=== PATIENT | male | born 1965 | race Caucasian/White ===

== ENCOUNTER 2024-05-04 19:18 | Emergency (ER) | payer BC, SELFPAY ==
[2024-05-04 19:21] VITALS: BP 166/104
[2024-05-04 19:40] LABS: % Basophils 0.5 % (0-2); % Eosinophils 2.3 % (0-6); % Immature Granulocytes 0.4 % (0-0.5); % Lymphocytes 20.1 % (20.5-51.1); % Monocytes 7.1 % (1.7-9.3); % Neutrophils 69.6 % (42.2-75.2); Absolute Eosinophils 0.2 10^3/uL (0-0.7); Absolute Lymphocytes 1.5 10^3/uL (1.2-3.4); Absolute Monocytes 0.5 10^3/uL (0.1-0.6); Absolute Neutrophils 5.2 10^3/uL (1.4-6.5); Hematocrit 39.6 % (39.0-52.0); Hemoglobin 13.9 g/dL (13.0-18.0); Mean Corp Hgb Conc. 35.1 g/dL (33.0-37.0); Mean Corpuscular Hgb 29.3 pg (27.0-31.0); Mean Corpuscular Volume 83.5 fL (80.0-94.0); Mean Platelet Volume 9.8 fL (7.4-10.4); Nucleated Red Blood Cells % 0 % (-); Platelet Count 198 10^3/uL (130-400); Red Blood Cell Count 4.74 10^6/uL (4.70-6.10); Red Cell Dist. Width 12.6 % (11.5-14.5); White Blood Cell Count 7.5 10^3/uL (4.8-10.8)
[2024-05-04 19:47] LABS: Urine Albumin Trace (Neg - Trace); Urine Bilirubin Negative (Negative); Urine Character Clear (Clear); Urine Color Amber; Urine Glucose Negative (Negative); Urine Ketone Trace (Negative); Urine Leukocyte Trace (Negative); Urine Nitrite Negative (Negative); Urine Occult Blood 4+ (Negative); Urine Specific Gravity 1.025 (<1.030); Urine Urobilinogen 1+ (Neg - 1+)
[2024-05-04 20:00] LABS: ALT (SGPT) 34 U/L (0-50); AST (SGOT) 29 U/L (17-59); Albumin 4.7 g/dl (3.5-5.0); Alkaline Phosphatase 74 U/L (38-126); Blood Urea Nitrogen 20 mg/dl (9-20); Calcium 9.4 mg/dl (8.4-10.2); Carbon Dioxide 27 mmol/L (22-30); Chloride 103 mmol/L (98-107); Glucose 195 mg/dl (70-99); Potassium 4.6 mmol/L (3.5-5.1); Sodium 143 mmol/L (135-145); Total Bilirubin 0.7 mg/dl (0.2-1.3); Total Protein 7.1 g/dl (6.3-8.2); eGFR > 60.00
[2024-05-04 20:17] LABS: Urine Calcium Oxalate Crystals Present
[2024-05-04 20:18] LABS: Urine Bacteria Few (Negative); Urine Red Blood Cell 50-60 /HPF (0-2); Urine Yeast Few (Negative)
--- NOTE | 2024-05-04 20:30 | ED.GENMED ---
History of Present Illness
General
Chief Complaint: Flank Pain
Source: patient
Time Seen by Provider: 05/04/24 20:19
History of Present Illness
History of Present Illness:
58yoM with a history of hypertension, type 2 diabetes, and kidney stones presenting for evaluation of right flank pain. Pain started abruptly about 2 hours ago while he was driving home from work. The pain radiates to the right lower quadrant.
Pain was severe at onset and was associated with nausea. The pain has been coming in waves and is currently mild. Patient has not taken anything [id number] for his symptoms. He also notes that his urine appeared dark. He is otherwise
asymptomatic and denies any fevers, dysuria, testicular pain.
Phy Exam
General Physical Exam
General Presentation: well appearing and no apparent distress
General age: appears stated age
General Skin: warm and dry
General Habitus: normal
General Mental: alert
ENT Exam
ENT Exam: normocephalic
Pulmonary Exam
Pulmonary Exam: no respiratory distress
Gastrointestinal Exam
Gastrointestinal Exam: non tender, soft, non distended and no cva tenderness
[place] Coma Scale
Eye Opening: Spontaneous
Verbal Response: Oriented
Motor Response: Obeys Commands
GCS Total Score: 15
Skin Exam
Skin Exam: normal color and warm/dry
Psychiatric Exam
Psychiatric Exam: normal mood/affect
Course
Orders/Labs/Results
Orders:
Orders
05/04/24 19:28
Urinalysis Reflex To Culture Urgent
Date Specimen was Collected: 05/04/24
Time Specimen was Collected: 19:25
Urine Microscopic Reflex Cult Urgent
05/04/24 19:34
Complete Blood Count/With Diff Urgent
Comprehensive Metabolic Panel Urgent
05/04/24 20:29
CT Abd/pel Without Iv Or Oral Urgent
Comment:
Reason For Exam: R flank pain
0.9% Sodium Chloride 1000 ml [Nss] 1,000 ml IV BOLUS
05/04/24 21:44
Ketorolac [Toradol] 15 mg IV NOW STA
Tamsulosin [Flomax] 0.4 mg PO NOW STA
Abnormal Lab Results
05/04/24 05/04/24
19:28 19:34
Lymphocytes % 20.1 L %
(20.5-51.1)
Glucose 195 H mg/dl
(70-99)
Urine Ketones Trace A
(Negative)
Ur Occult Blood Reflex 4+ A
(Negative)
Leukocyte Esterase Rfl Trace A
(Negative)
Urine RBC 50-60 A /HPF
(0-2)
Urine Bacteria (Reflex) Few A
(Negative)
Urine Yeast Few A
(Negative)
05/04/24 19:34
05/04/24 19:34
Vital Signs
Initial and Last Documented VS:
Initial Vital Signs
Temp Pulse Resp BP Pulse Ox
98.5 F 77 18 166/104 98
05/04/24 19:21 05/04/24 19:21 05/04/24 19:21 05/04/24 19:21 05/04/24 19:21
Last Documented Vital Signs
Temp Pulse Resp BP Pulse Ox
98.5 F 81 18 121/86 98
05/04/24 19:21 05/04/24 22:11 05/04/24 19:21 05/04/24 22:11 05/04/24 19:21
MDM/Problems Addressed
Differential Diagnosis Includes:
58yoM here with R flank pain x 2 hours. Radiates to RLQ. Associated with nausea. Hx of kidney stones. He is afebrile and hemodynamically stable. He is well-appearing in no acute distress. No abdominal or CVA tenderness on exam. Differential
diagnosis includes but is not limited to: Kidney stone, pyelonephritis, musculoskeletal pain
Initial ED plan: Check CBC, CMP, UA, and CT abdomen. IV fluid bolus. Patient declines analgesics.
*Critical Care Note
Total Time (30-74mins, 75-104mins- exclusive of procedures): Not Applicable
Update Note
Update Note:
CT shows a 5 mm stone in the right UPJ with minimal hydronephrosis. Renal function is stable. UA with microscopic hematuria but no signs of infection. Pain remains controlled on reassessment. No indication for hospitalization. Supportive care
discussed including hydration, urine straining, and Flomax. Patient declines prescriptions for Zofran or oxycodone. He is scheduled to fly home to [place] tomorrow. He was given a disc with his CT images as well as a printout of the radiology
reports. Strict ED return precautions discussed including uncontrolled pain and fevers. He expressed understanding and is agreeable to plan. Patient discharged in stable condition.
ED Attending Note
-
Portions of this chart may have been created with voice recognition software.� Occasional wrong word or��sound alike� substitutions may have occurred due to the inherent limitations of voice recognition software.
Discharge Plan
Departure
Patient Disposition: Home (Routine Discharge)
Date of Disposition: 05/04/24
Time of Disposition: 21:44
Patient with high blood pressure during this ER visit?: Yes
Discharge Problem:
Calculus of proximal right ureter
Instructions: Kidney Stones (DC), How to Strain Your Urine
Prescriptions:
New
tamsulosin [Flomax] 0.4 mg capsule
0.4 mg PO DAILY Qty: 10 0RF
Referrals:
PRIVATE,PHYSICIAN [Family Provider] -
Activity Restrictions/Additional Instructions:
Drink plenty of fluids. Take Flomax and strain your urine until stone has passed.
Take Tylenol 650mg and ibuprofen 600mg every 6 hours as needed for pain.
Please follow-up with urology. Return to the ER with any worsening symptoms, uncontrolled pain, fevers.
Interventions
Interventions:
*Risk Screen - Suicide Last Done: 05/04/24 19:21
*General Assessment Last Done: 05/04/24 19:21
*Neglect/Abuse Screening Last Done: 05/04/24 19:21
*Nursing Disposition Last Done: 05/04/24 22:11
EU-Zpyhem-Nswbziylns Assessment Last Done: 05/04/24 20:53
Discharge Date and Time
Discharge Date/Time: 05/04/24 22:12
Print Language: HUNGARIAN
[2024-05-04 20:45] VITALS: BMI 34.2
[2024-05-04] MEDS: NSS 1000 IV (20:52)
[2024-05-04] MEDS: TORADOL 15 MG IV (21:59)
[2024-05-04] MEDS: FLOMAX 0.4 MG PO (21:59)
[2024-05-04 22:11] VITALS: BP 121/86
== END 2024-05-04 22:12 | disposition home or self-care (01) ==
LOC: EMR 19:18
PROVIDERS: Emergency Medicine; EMERGENCY PHYSICIAN Emergency Medicine
DX: N13.2 Hydronephrosis with renal and ureteral calculous obstruction (principal); R11.0 Nausea; I10 Essential (primary) hypertension; E11.9 Type 2 diabetes mellitus without complications; Z87.442 Personal history of urinary calculi
CPT/HCPCS: 99284; 96374; 96361; 74176; 80053; 81003; 81015; 85025